=== PATIENT | male | born 2005 | race Caucasian/White ===

== ENCOUNTER 2023-02-25 20:11 | Emergency (ER) | payer SELFPAY ==
[2023-02-25 20:15] VITALS: PULSE 101; RESP 18; TEMP 37.2; O2SAT 100; BMI 25.2
--- NOTE | 2023-02-25 21:02 | EX.ED.DYSGE1 ---
HPI History of Present Illness Chief Complaint: Allergic Reaction Detail of Chief Complaint: Allergic reaction to multiple bee stings Informant: patient Onset/Context/Timing Onset: Hours Context: Sudden Onset Timing: Intermittent Quality: Swelling of his right hand, cheek Location: Local reaction Current Severity: Mild Maximum Severity: Moderate Worsened by: Hymenoptera envenomation Relieved by: Patient was treated with Benadryl, Solu-Medrol and epi prior to arrival. Associated Symptoms Associated Symptoms: No respiratory, cardiovascular or GI symptoms Narrative Narrative: Patient is an 17-year-old who presents with multiple bee stings. He denies swelling of his lips, tongue or throat. He denies trouble with speech or swallowing. He denied lightheadedness. He denies chest discomfort or shortness of breath. He denies wheezing. He denies nausea, vomiting or diarrhea. He denies prior allergic reaction to hymenoptera envenomation. He presently has no complaints. Prior similar symptoms: No Recent Illness/Hospitalization: No PFSH PFSH Medical History no medical history no medical history Home Medications NK 02/25/23 [History Last Taken Unknown] Surgical History no surgical history no surgical history Social History (Updated 02/25/23 @ 21:[address] Walker Baca MD) household members: family Smoking Status: Never smoker ROS ROS ED Constitutional Constitutional ED: Denies chills, fever(s) or subjective Eyes Eyes: Denies blurry vision, change in vision or diplopia ENT ENT ED: Denies ear pain, rhinorrhea or sore throat Cardiovascular Cardiovascular: Denies chest pain or palpitations Respiratory/Chest Respiratory/Chest: Denies cough, dyspnea or dyspnea on exertion Gastrointestinal Gastrointestinal: Denies diarrhea, nausea or vomiting Musculoskeletal Musculoskeletal: Denies arthralgias or myalgias Integumentary Denies rash Neurologic Neurologic: Denies headache(s), paresthesias or weakness Hematologic/Lymphatic Hematologic/Lymphatic: Reports systems reviewed and no addt'l complaints, except as documented Allergic/Immunologic Allergic/Immunologic ED: Denies mouth swelling, tongue swelling or urticaria EXAM Physical Exam Const Vital Signs: 02/25/23 20:15 Temperature 98.9 F Temperature Source Temporal Pulse Rate 101 H Respiratory Rate 18 Pulse Ox 100 Oxygen Delivery Method Room Air Positive well nourished and well developed General Appearance ED: well developed and NAD; Negative for cyanotic, diaphoretic or pallor HEENT Reports moist mucous membranes HEENT Narrative: There is no evidence of angioedema. Posterior pharynx is normal. Ears normal. Nares patent. Eyes PERRL and EOMs intact bilaterally General Eye ED: Negative for pale conjunctiva or scleral icterus Neck no lymphadenopathy, supple and no JVD Chest Wall inspection of chest normal and palpation of chest normal Resp normal respiratory effort and clear to auscultation bilaterally Cardio regular rate, regular rhythm, S1 normal heart sound, S2 normal heart sound and no murmurs GI normal to inspection, nondistended, normoactive bowel sounds, non-tender and non-distended; Negative for hepatosplenomegaly or no masses Back/Spine no CVA tenderness Extremity normal to inspection General Extremety ED: Negative for edema or tenderness General Extremity: Negative for edema Neuro oriented x3, CN's II-XII intact bilaterally and no sensory deficits noted Sensorium / Orientation: alert Psych mental status grossly normal Skin no rashes or lesions noted, no wounds and skin turgor normal General Skin Exam: Negative for jaundice or pallor MDM MDM MDM Narrative Medical decision making narrative: Patient sent in for consistent with a local reaction due to multiple bee stings. There is no systemic findings. Patient was observed for an hour. He has had no symptoms. He will be discharged home. History & Record Review Discussion w/independent historian: Patient and Family Discharge Plan Triage Chief Complaint: Allergic Reaction ED Provider: Walker Baca Dx/Rx/DC Orders Clinical Impression: Local reaction to bee sting Prescriptions: No Action NK Primary Care Provider: Campbell Stein Referrals: Doctor,Your [Non-Staff] - Activity Restrictions/Additional Instructions: Take 1 Benadryl capsule every 6 hours for the next 2 days. You may have swelling of your hand for several days If you develop trouble breathing, lightheadedness, swelling of your lips, tongue or throat return to the emergency department
== END 2023-02-25 21:23 | disposition home or self-care (01) ==
LOC: ED 21:06
PROVIDERS: Emergency Provider Emergency Medicine; PCP Physician Assistant; Visit Provider Emergency Medicine
DX: T63.444A Toxic effect of venom of bees, undetermined, initial encounter (principal)
CPT/HCPCS: 99284